=== PATIENT | female | born 1955 | race Caucasian/White ===

== ENCOUNTER 2020-02-15 06:16 | Day surgery (SDC) | payer OTHER ==
[~2020-02-15] VITALS: Ht 165.1 cm; Wt 77.6 kg
[~2020-02-15 06:16] MED LIST: BLACK COHOSH200 MG PO; FLONASE 0.05%50 MCG NARES; OMEPRAZOLE40 MG PO; PROAIR HFA8.5 GM INH; STOOL SOFTENER100 M1 PO
[2020-02-15 09:24] VITALS: BP 127/64
--- NOTE | 2020-02-19 06:26 | O ---
[facility] [place] [address] OPERATIVE REPORT Name: JJ CANTU Room #: DEP [facility]#: [id number] Admission: 02/15/20 Attend Phys: Minh Hood MD Discharge: 02/15/20 Date of : 59 Report #: [id number] THIS REPORT FOR: cc: Antony Correa MD,Antony Hood,Minh Arias MD ~ CC: Shawn Hood DATE OF SERVICE: 02/15/2020 SUPERINTENDENT [employer] WELL SERVICES: None. PREOPERATIVE DIAGNOSIS: Bilateral upper lid ptosis with superior visual field defects both eyes. POSTOPERATIVE DIAGNOSIS: Bilateral upper lid ptosis with superior visual field defects both eyes. OPERATION PERFORMED: Bilateral upper lid functional ptosis repair. SUPERINTENDENT OIL WELL SERVICES: None. ANESTHESIA: Local with IV sedation. COMPLICATIONS: None. INDICATIONS FOR PROCEDURE: This patient has bilateral upper lid ptosis with superior visual field loss both eyes. Visual field testing demonstrates dense superior visual defects. Retesting with the upper lid elevated shows an improvement in visual field loss of over 30% and in excess of 12 degrees. The current procedure is being undertaken in order to improve the patient's visual function. Informed consent was obtained to include but not limited to the risk of loss of vision, bleeding, infection, scarring, failure to improve the problem and need for further surgery, such as adjustment of lid height. DESCRIPTION OF PROCEDURE: The patient was taken to the operating room, where 2% Xylocaine with epinephrine mixed with equal parts of 0.75% Marcaine with Wydase was administered transcutaneously to each upper lid. The patient was then prepped and draped in the usual sterile fashion. An upper lid crease incision was then made bilaterally and the dissection was [facility] [address] [place] [address] OPERATIVE REPORT Name: JJ CANTU Kevin Room #: DEP [facility].#: [id number] Admission: 02/15/20 Attend Phys: Minh Hood MD Discharge: 02/15/20 Date of : 59 Report #: [id number] carried down until the orbital septum was identified. The orbital septum was then cleared and the preaponeurotic fat identified. The levator aponeurosis was then disinserted from the anterior surface of the tarsal plate and dissected free in the avascular Calderon's muscle plane. The aponeurosis was then advanced and reattached to the anterior surface of the tarsal plate with interrupted mattress 6-0 Novafil sutures on each side, adjusting for height and contour. The redundant aponeurosis was then amputated. The incision was then closed with multiple interrupted 6-0 chromic sutures that were used to recreate an upper lid crease. The skin was closed with a running 6-0 plain gut suture. The wound was then cleaned and dressed with ophthalmic antibiotic ointment followed by a Telfa pad. The patient was transported to the recovery area, having tolerated the procedure well with no anesthesia or operative complications being noted. <ELECTRONICALLY SIGNED> By: Minh Hood MD 02/19/20 [id number] Minh Hood MD /nt
== END 2020-02-15 08:25 | disposition home or self-care (01) ==
LOC: OR 06:16 → TBA 06:18 → OR 08:25
PROVIDERS: ATTEND Ophthalmology
DX: H02.413 Mechanical ptosis of bilateral eyelids (principal); H53.462 Homonymous bilateral field defects, left side; H53.461 Homonymous bilateral field defects, right side; J45.909 Unspecified asthma, uncomplicated; K21.9 Gastro-esophageal reflux disease without esophagitis; Z11.59 Encounter for screening for other viral diseases; Z98.890 Other specified postprocedural states; Z79.899 Other long term (current) drug therapy; Z96.653 Presence of artificial knee joint, bilateral; Z90.49 Acquired absence of other specified parts of digestive tract; Z90.710 Acquired absence of both cervix and uterus; Z88.8 Allergy status to other drugs, medicaments and biological substances
CPT/HCPCS: 50010; 50101; 50386; 50398; 51636; 56531; 62110; 62850; 70005